=== PATIENT | male | born 1990 | race African-American/Black ===

== ENCOUNTER 2020-01-31 05:50 | Emergency (ER) | payer MEDICAID, SELFPAY ==
[2020-01-31] VITALS (8 sets, daily range): BP systolic 130–157; BP diastolic 79–94; PULSE 62–99; RESP 10–18; TEMP 36.7; O2SAT 95–99
--- NOTE | ~2020-01-31 | XR_ITS ---
EXAMINATION: XR chest 2V DATE: 01/31/2020 06:30 INDICATION: Midsternal chest pain. TECHNIQUE: Frontal and lateral views of the chest were obtained. COMPARISON: None. FINDINGS: The chest demonstrates clear lungs without pneumonia, pleural effusion, or pneumothorax. Th e heart size is normal. IMPRESSION: 1. No acute cardiopulmonary disease. Reviewed, dictated and finalized at location A.
--- NOTE | 2020-01-31 05:59 | ECG_ITS ---
Measurements Intervals [place] Rate: 99 P: 37 [place]: 141 QRS: -44 QRSD: 98 T: -12 QT: 321 QTc: 413 Interpretive Statements SINUS RHYTHM LEFT AXIS DEVIATION BORDERLINE R WAVE PROGRESSION, ANTERIOR LEADS BORDERLINE ST-T WAVE ABNORMALITY- INFERIOR LEADS BORDERLINE ECG Electronically Signed On 01-31-2020 7:04:30 CDT by Galdino Almodovar D.O.
--- NOTE | 2020-01-31 06:07 | ED.CHESTPAIN ---
HPI - Chest Pain General Chief Complaint: Chest Pain <Iza Lala MD - Last Filed: 02/01/20 04:37> Stated Complaint: gas/cp/heart attack? <Iza Lala MD - Last Filed: 02/01/20 04:37> Time Seen by Provider: 01/31/20 06:00 <Iza Lala MD - Last Filed: 02/01/20 04:37> History of Present Illness HPI narrative: Patient presents with his mother for the sensation of gas in his chest. He also feels large amounts of gas in his right abdomen. He said this is been constant for 4 days. It is not pain just pressure. Worse when lying down. He denies hypertension. He does not take any prescription medications. He is unemployed. His only surgery is circumcision. He denies smoking, drinks a little, and does marijuana. <Iza Lala MD - Last Filed: 02/01/20 04:37> MD complaint: chest discomfort <Iza Lala MD - Last Filed: 02/01/20 04:37> Pertinent past history: other (Overweight) <Iza Lala MD - Last Filed: 02/01/20 04:37> Onset (ago): day(s) <Iza Lala MD - Last Filed: 02/01/20 04:37> Timing of current episode: constant <Iza Lala MD - Last Filed: 02/01/20 04:37> Prior episodes: Yes <Iza Lala MD - Last Filed: 02/01/20 04:37> Onset: during rest <Iza Lala MD - Last Filed: 02/01/20 04:37> Pain location: substernal <Iza Lala MD - Last Filed: 02/01/20 04:37> Quality: fullness <Iza Lala MD - Last Filed: 02/01/20 04:37> Exacerbating factors: supine <Iza Lala MD - Last Filed: 02/01/20 04:37> Related Data Home Medications: Home Medications Medication Instructions Recorded Confirmed No Home Medications 01/31/20 01/31/20 <Iza Lala MD - Last Filed: 02/01/20 04:37> Allergies/Adverse Reactions: Allergies Allergy/AdvReac Type Severity Reaction Status Date / Time No Known Allergies Allergy Verified 01/31/20 06:04 <Iza Lala MD - Last Filed: 02/01/20 04:37> Review of Systems Review of Systems: Narrative: CONSTITUTIONAL: Denies fever, chills, or sweats. EYES: Denies visual changes, redness, or discharge. ENT: Denies rhinorrhea, congestion, sore throat, or otalgia. CARDIOVASCULAR: Denies chest pain, palpitations, or edema. RESPIRATORY: Denies cough or dyspnea. GASTROINTESTINAL: Denies abdominal pain, nausea, vomiting, or diarrhea. GENITOURINARY: Denies dysuria or hematuria. SKIN: Denies rash or itching. MUSCULOSKELETAL: Denies back pain, joint pain, or myalgia. NEUROLOGIC: Denies headache, numbness, or weakness. PSYCHIATRIC: Denies anxiety or depression. <Iza Lala MD - Last Filed: 02/01/20 04:37> All systems reviewed & are unremarkable except as noted in HPI and below <Iza Lala MD - Last Filed: 02/01/20 04:37> PMFSH Past Medical History Medical History: Medical History Overweight <Iza Lala MD - Last Filed: 02/01/20 04:37> Surgical History Surgical History: Surgical History History of circumcision <Iza Lala MD - Last Filed: 02/01/20 04:37> Family History Family History: Family History (Updated 04/03/16 @ 23:19 by DOCTOR UNKNOWN) Father Family history of diabetes mellitus in first degree relative Mother Patient's mother is in good health <Iza Lala MD - Last Filed: 02/01/20 04:37> Social History Social History: Social History (Updated 01/31/20 @ 06:11 by Iza Lala MD) Smoking status: Never smoker Alcohol intake: current Substance use type: marijuana Gender identity (if verbalized by the patient): Male <Iza Lala MD - Last Filed: 02/01/20 04:37> Exam Narrative: Exam Narrative: GENERAL: Well-appearing, well-nourished, and in no acute distress. Overweight with gynecomastia. HEAD: Normocephalic, atraumatic. EYES: PERRLA and EOMI. ENT: Nares clear, no rhinorrhea or epist
[2020-01-31 06:14] LABS: Basophils Absolute Auto 0.1 K/mm3 (0.0-0.1); Basophils Percent Auto 0.6 % (0.2-1.2); Eosinophils Percent Auto 0.4 % (0-4.4); Hemoglobin 15.4 g/dL (14.0-18.0); Immature Granulocyte Absolute 0.02 K/mm3 (0.00-0.031); Immature Granulocyte Percent A 0.2 % (0-0.5); Lymphocytes Absolute Auto 2.08 K/mm3 (0.9-3.2); Lymphocytes Percent Auto 25.4 % (18.3-44.2); Mean Corpuscular HGB Conc 34.2 g/dl (32-36); Mean Corpuscular Hemoglobin 30.4 pg (26-34); Mean Corpuscular Volume 88.8 fl (80-100); Mean Platelet Volume 10.5 fl (7.4-10.4); Monocytes Absolute Auto 0.8 K/mm3 (0.1-0.6); Monocytes Percent Auto 9.1 % (2.6-8.5); Neutrophils Absolute Auto 5.3 K/mm3 (1.3-6.7); Neutrophils Percent Auto 64.3 % (45.5-73.1); Platelet Count Result 321 k/mm3 (150-375); Red Blood Count 5.07 M/mm3 (4.6-6.20); White Blood Count 8.2 K/mm3 (4.5-10.0)
[2020-01-31 06:25] LABS: Partial Thromboplastin Time 26.2 SECONDS (22.3-36.8); Prothrombin Time 12.9 Seconds (11.1-14.7)
[2020-01-31 06:28] LABS: Blood Urea Nitrogen 14 mg/dL (9-20); Calcium 9.4 mg/dL (8.4-10.2); Carbon Dioxide 24 mmol/L (22-30); Chloride 104 mmol/L (98-107); Estimated Glomerular Filt Rate > 60; Glucose 104 mg/dL (75-110); Potassium 3.9 mmol/L (3.4-5.0); Sodium 139 mmol/L (137-145)
[2020-01-31 06:40] LABS: Troponin I 0.015 ng/mL (0.000-0.034)
[2020-01-31] MEDS: BELLADONNA ALK/PHENOB ELIX 10 ML, MAG HYDROX/ALUMINUM HYD/SIMETH 30 ML, LIDOCAINE HCL 2... PO ×2 (06:40→08:08)
[2020-01-31 07:11] LABS: Amphetamine Screen Urine Negative (Negative); Barbiturate Screen Urine Negative (Negative); Benzodiazepines Screen Urine Negative (Negative); Cannabinoid Screen Urine Positive (Negative); Cocaine Screen Urine Negative (Negative); Methadone Screen Urine Negative (Negative); Opiate Screen Urine Negative (Negative); Phencyclidine Screen Urine Negative (Negative)
--- NOTE | 2020-01-31 07:54 | ECG_ITS ---
Measurements Intervals [place] Rate: 60 P: 40 [place]: 138 QRS: -24 QRSD: 97 T: -31 QT: 366 QTc: 368 Interpretive Statements SINUS RHYTHM DELAYED PRECORDIAL R/S TRANSITION ST ELEVATION IN ANTEROLAT/LAT LEADS- PROBABLY EARLY REPOLARIZATION ST-T WAVE ABNORMALITY IN INFERIOR LEADS- CONSIDER ISCHEMIA ABNORMAL ECG Electronically Signed On 01-31-2020 8:35:35 CDT by Galdino Almodovar D.O.
--- NOTE | 2020-01-31 07:55 | PC.NURSE ---
Pt c/o CP at this time. notified. VORB for repeat EKG
[2020-01-31 11:49] LABS: Troponin I 0.015 ng/mL (0.000-0.034)
[2020-01-31 13:49] LABS: Ethanol < 10 mg/dL (<10)
== END 2020-01-31 12:04 | disposition home or self-care (01) ==
PROVIDERS: Emergency Medicine; Emergency Provider Emergency Medicine
DX: R07.89 Other chest pain (principal); R94.31 Abnormal electrocardiogram [ECG] [EKG]
CPT/HCPCS: 36415; 71046; 80048; 80307; 84484; 85025; 85610; 85730; 93005; 99284; A9270

== ENCOUNTER 2020-02-21 19:26 | Emergency (ER) | payer BC, SELFPAY ==
[2020-02-21 19:33] VITALS: BP 149/104; PULSE 87; RESP 16; TEMP 36.8; O2SAT 100
--- NOTE | 2020-02-21 19:36 | ED.GENADULT ---
HPI - General Adult General Chief complaint: Unspecified Stated complaint: it aint reflux Time Seen by Provider: 02/21/20 19:36 Related Data Home Medications Medication Instructions Recorded Confirmed No Home Medications 01/31/20 01/31/20 Allergies Allergy/AdvReac Type Severity Reaction Status Date / Time No Known Allergies Allergy Verified 01/31/20 06:04 [facility] Family History Family History (Updated 04/03/16 @ 23:19 by DOCTOR UNKNOWN) Father Family history of diabetes mellitus in first degree relative Mother Patient's mother is in good health Social History Social History (Updated 01/31/20 @ 06:11 by Iza Lala MD) Smoking status: Never smoker Alcohol intake: current Substance use type: marijuana Gender identity (if verbalized by the patient): Male Course Vital Signs Vital signs: Vital Signs Temperature 36.8 C 02/21/20 19:33 Pulse Rate 87 02/21/20 19:33 Respiratory Rate 16 02/21/20 19:33 Blood Pressure 149/104 H 02/21/20 19:33 Pulse Oximetry 100 02/21/20 19:33 Temperature 36.8 C 02/21/20 19:33 Pulse Rate 87 02/21/20 19:33 Respiratory Rate 16 02/21/20 19:33 Blood Pressure 149/104 H 02/21/20 19:33 Pulse Oximetry 100 02/21/20 19:33 Medical Decision Making Vital Signs Vital Signs: Vital Signs Temperature 36.8 C 02/21/20 19:33 Pulse Rate 87 02/21/20 19:33 Respiratory Rate 16 02/21/20 19:33 Blood Pressure 149/104 H 02/21/20 19:33 Pulse Oximetry 100 02/21/20 19:33 Temperature 36.8 C 02/21/20 19:33 Pulse Rate 87 02/21/20 19:33 Respiratory Rate 16 02/21/20 19:33 Blood Pressure 149/104 H 02/21/20 19:33 Pulse Oximetry 100 02/21/20 19:33 Discharge Plan Discharge Prescriptions: No Action No Home Medications RF: 0
--- NOTE | 2020-02-21 19:50 | PC.NURSE ---
pt states he is uneasy about being in a joint room. pt says he wants to see the dr, but i am unable to give him a time that the dr will be in. pt says he will see his dr tomorrow. i informed him to come back if he needs to be seen or is experiencing cp or sob. pt ambulated out of ed with a steady gait.
== END 2020-02-21 19:54 | disposition left against medical advice (07) ==
LOC: ANHED 19:42
PROVIDERS: PCP Nurse Practitioner Family
DX: M79.602 Pain in left arm (principal)
CPT/HCPCS: 99199